=== PATIENT | male | born 1955 | race Caucasian/White ===

== ENCOUNTER → 2016-12-22 | Day surgery (SDC) | payer OTHER | LOC: MSO 12-15 13:20 | DX: Z12.11 Encounter for screening for malignant neoplasm of colon (principal); K57.30 Diverticulosis of large intestine without perforation or abscess without bleeding; K64.4 Residual hemorrhoidal skin tags | CPT/HCPCS: 00810; J2405; J7120 ==

== ENCOUNTER → 2018-11-10 | Outpatient (CLI) | payer BC | LOC: RAD 08:22 | DX: R91.1 Solitary pulmonary nodule (principal); R93.422 Abnormal radiologic findings on diagnostic imaging of left kidney | CPT/HCPCS: Q9967 ==

== ENCOUNTER → 2019-01-10 | Outpatient (CLI) | payer BC | LOC: RAD 08:09 | DX: K86.9 Disease of pancreas, unspecified (principal); C64.2 Malignant neoplasm of left kidney, except renal pelvis; R91.1 Solitary pulmonary nodule | CPT/HCPCS: Q9965; Q9967 ==

== ENCOUNTER → 2019-02-21 | Outpatient (CLI) | payer BC | LOC: LAB 07:09 → RAD 07:09 | PROVIDERS: Urology | DX: Z01.812 Encounter for preprocedural laboratory examination (principal); K86.9 Disease of pancreas, unspecified; R91.1 Solitary pulmonary nodule; R93.422 Abnormal radiologic findings on diagnostic imaging of left kidney; Z90.5 Acquired absence of kidney | CPT/HCPCS: Q9967 ==

== ENCOUNTER → 2019-06-28 | Outpatient (CLI) | payer BC | LOC: LAB 07:52 → RAD 07:52 | DX: C25.9 Malignant neoplasm of pancreas, unspecified (principal); K57.30 Diverticulosis of large intestine without perforation or abscess without bleeding; Z90.81 Acquired absence of spleen; Z90.5 Acquired absence of kidney | CPT/HCPCS: Q9967 ==

== ENCOUNTER → 2019-09-27 | Outpatient (CLI) | payer BC | LOC: RAD 07:15 | DX: C64.2 Malignant neoplasm of left kidney, except renal pelvis (principal); Z85.07 Personal history of malignant neoplasm of pancreas | CPT/HCPCS: Q9967 ==

== ENCOUNTER → 2019-11-08 | Outpatient (CLI) | payer BC ==
[2019-11-08 15:10] LABS: HEMOGLOBIN 15.1 g/dL (13.5-18.0); MEAN CELL VOLUME 92 fl (78-100); MEAN CORPUSCULAR HEMOGLOBIN 31 pg (27-31); MEAN CORPUSCULAR HGB CONC 34 g/dL (33-37); MEAN PLATELET VOLUME 9.1 fl (7.4-10.4); PLATELET COUNT 462 K/mm3 (130-400); RED BLOOD COUNT 4.87 M/mm3 (4.20-5.60); WHITE BLOOD COUNT 10.2 K/mm3 (4.8-10.8)
[2019-11-08 15:19] LABS: POTASSIUM 4.2 mmol/L (3.5-5.1)
[2019-11-08 15:20] LABS: CALCIUM 9.3 mg/dL (8.3-10.5)
[2019-11-08 15:21] LABS: TOTAL PROTEIN 7.3 g/dL (6.2-8.1)
[2019-11-08 15:22] LABS: LYMPHOCYTE 41 % (20-51); MONOCYTE 13 % (3-10); NEUTROPHILS 40 % (42-75)
[2019-11-08 15:23] LABS: TOTAL BILIRUBIN 0.5 mg/dL (0.2-1.2)
== END ==
LOC: LAB 14:57
PROVIDERS: Internal Medicine
DX: C64.2 Malignant neoplasm of left kidney, except renal pelvis (principal)

== ENCOUNTER → 2019-12-20 | Outpatient (CLI) | payer BC ==
[2019-12-20 09:46] LABS: HEMOGLOBIN 15.1 g/dL (13.5-18.0); MEAN CELL VOLUME 93 fl (78-100); MEAN CORPUSCULAR HEMOGLOBIN 31 pg (27-31); MEAN CORPUSCULAR HGB CONC 33 g/dL (33-37); PLATELET COUNT 474 K/mm3 (130-400); RED BLOOD COUNT 4.95 M/mm3 (4.20-5.60); RED CELL DISTRIBUTION WIDTH 13.1 % (11.5-14.5); WHITE BLOOD COUNT 8.1 K/mm3 (4.8-10.8)
[2019-12-20 09:49] LABS: POTASSIUM 4.1 mmol/L (3.5-5.1)
[2019-12-20 09:50] LABS: CALCIUM 9.3 mg/dL (8.3-10.5)
[2019-12-20 09:53] LABS: TOTAL BILIRUBIN 0.7 mg/dL (0.2-1.2)
[2019-12-20 10:45] LABS: LYMPHOCYTE 47 % (20-51); MONOCYTE 19 % (3-10); NEUTROPHILS 33 % (42-75)
== END ==
LOC: LAB 09:04
PROVIDERS: Internal Medicine
DX: C64.2 Malignant neoplasm of left kidney, except renal pelvis (principal)

== ENCOUNTER → 2020-01-03 | Outpatient (CLI) | payer BC | LOC: RAD 07:36 | DX: C64.2 Malignant neoplasm of left kidney, except renal pelvis (principal) | CPT/HCPCS: A9585 ==

== ENCOUNTER → 2020-01-06 | Outpatient (CLI) | payer BC | LOC: RAD 08:43 | DX: C64.2 Malignant neoplasm of left kidney, except renal pelvis (principal); E27.8 Other specified disorders of adrenal gland; K86.2 Cyst of pancreas; Z90.81 Acquired absence of spleen; Z90.5 Acquired absence of kidney; Z90.411 Acquired partial absence of pancreas | CPT/HCPCS: Q9967 ==

== ENCOUNTER → 2020-01-10 | Outpatient (CLI) | payer BC ==
[2020-01-10 16:41] LABS: BASO # 0.1 (0.02-0.10); EOS # 0.4 (0.04-0.40); EOS % 3.3 % (0.0-4.0); HEMATOCRIT 49.3 % (42.0-52.0); HEMOGLOBIN 16.4 g/dL (13.5-18.0); LYMPH# 4.2 (1.50-4.00); MEAN CELL VOLUME 94 fl (78-100); MEAN CORPUSCULAR HEMOGLOBIN 31 pg (27-31); MEAN CORPUSCULAR HGB CONC 33 g/dL (33-37); MEAN PLATELET VOLUME 9.5 fl (7.4-10.4); MONO # 1.3 (0.20-0.80); NEU # 5.6 (1.40-6.50); PLATELET COUNT 381 K/mm3 (130-400); RED BLOOD COUNT 5.25 M/mm3 (4.20-5.60); RED CELL DISTRIBUTION WIDTH 14.1 % (11.5-14.5); WHITE BLOOD COUNT 11.7 K/mm3 (4.8-10.8)
[2020-01-10 16:44] LABS: ALBUMIN 4.3 g/dL (3.4-4.8)
[2020-01-10 16:46] LABS: CALCIUM 9.4 mg/dL (8.3-10.5)
[2020-01-10 16:47] LABS: TOTAL PROTEIN 8.1 g/dL (6.2-8.1)
[2020-01-10 16:49] LABS: TOTAL BILIRUBIN 0.5 mg/dL (0.2-1.2)
== END ==
LOC: LAB 16:15
PROVIDERS: Internal Medicine
DX: C64.2 Malignant neoplasm of left kidney, except renal pelvis (principal)

== ENCOUNTER → 2020-01-31 | Outpatient (CLI) | payer BC ==
[2020-01-31 08:01] LABS: BASO # 0.1 (0.02-0.10); EOS # 0.5 (0.04-0.40); EOS % 4.9 % (0.0-4.0); HEMOGLOBIN 15.4 g/dL (13.5-18.0); LYMPH# 4.1 (1.50-4.00); MEAN CELL VOLUME 94 fl (78-100); MEAN CORPUSCULAR HEMOGLOBIN 31 pg (27-31); MEAN CORPUSCULAR HGB CONC 34 g/dL (33-37); MEAN PLATELET VOLUME 9.6 fl (7.4-10.4); NEU # 3.7 (1.40-6.50); PLATELET COUNT 405 K/mm3 (130-400); RED BLOOD COUNT 4.91 M/mm3 (4.20-5.60); RED CELL DISTRIBUTION WIDTH 14.8 % (11.5-14.5); WHITE BLOOD COUNT 9.5 K/mm3 (4.8-10.8)
[2020-01-31 08:34] LABS: ALBUMIN 4.1 g/dL (3.4-4.8)
[2020-01-31 08:35] LABS: POTASSIUM 4.1 mmol/L (3.5-5.1)
[2020-01-31 08:36] LABS: CALCIUM 9.3 mg/dL (8.3-10.5)
[2020-01-31 08:37] LABS: TOTAL PROTEIN 7.2 g/dL (6.2-8.1)
== END ==
LOC: LAB 07:29
PROVIDERS: Internal Medicine
DX: C64.2 Malignant neoplasm of left kidney, except renal pelvis (principal)

== ENCOUNTER → 2020-02-20 | Outpatient (CLI) | payer BC ==
[2020-02-20 07:52] LABS: HEMATOCRIT 45.6 % (42.0-52.0); HEMOGLOBIN 15.1 g/dL (13.5-18.0); MEAN CELL VOLUME 97 fl (78-100); MEAN CORPUSCULAR HEMOGLOBIN 32 pg (27-31); MEAN CORPUSCULAR HGB CONC 33 g/dL (33-37); MEAN PLATELET VOLUME 9.2 fl (7.4-10.4); PLATELET COUNT 423 K/mm3 (130-400); RED BLOOD COUNT 4.71 M/mm3 (4.20-5.60); RED CELL DISTRIBUTION WIDTH 14.9 % (11.5-14.5); WHITE BLOOD COUNT 8.6 K/mm3 (4.8-10.8)
[2020-02-20 08:01] LABS: ALBUMIN 4.1 g/dL (3.4-4.8); POTASSIUM 4.2 mmol/L (3.5-5.1)
[2020-02-20 08:03] LABS: CALCIUM 9.3 mg/dL (8.3-10.5)
[2020-02-20 08:04] LABS: TOTAL PROTEIN 6.9 g/dL (6.2-8.1)
[2020-02-20 08:41] LABS: LYMPHOCYTE 51 % (20-51); MONOCYTE 10 % (3-10); NEUTROPHILS 35 % (42-75)
[2020-02-20 08:42] LABS: ACANTHROCYTES 1+
== END ==
LOC: LAB 07:32
PROVIDERS: Internal Medicine
DX: C64.9 Malignant neoplasm of unspecified kidney, except renal pelvis (principal)

== ENCOUNTER → 2020-03-13 | Outpatient (CLI) | payer BC ==
[2020-03-14 20:15] LABS: ALBUMIN 4.2 g/dL (3.4-4.8); HEMATOCRIT 47.6 % (42.0-52.0); HEMOGLOBIN 15.4 g/dL (13.5-18.0); MEAN CELL VOLUME 99 fl (78-100); MEAN CORPUSCULAR HEMOGLOBIN 32 pg (27-31); POTASSIUM 5.2 mmol/L (3.5-5.1); RED BLOOD COUNT 4.82 M/mm3 (4.20-5.60); WHITE BLOOD COUNT 9.9 K/mm3 (4.8-10.8)
[2020-03-14 20:16] LABS: CALCIUM 9.8 mg/dL (8.3-10.5); MEAN CORPUSCULAR HGB CONC 32 g/dL (33-37); MEAN PLATELET VOLUME 10.9 fl (7.4-10.4); PLATELET COUNT 391 K/mm3 (130-400); RED CELL DISTRIBUTION WIDTH 14.2 % (11.5-14.5)
[2020-03-14 20:18] LABS: LYMPHOCYTE 31 % (20-51); MONOCYTE 16 % (3-10); NEUTROPHILS 48 % (42-75); TOTAL PROTEIN 7.6 g/dL (6.2-8.1)
[2020-03-14 20:19] LABS: ACANTHROCYTES 1+; TARGET CELLS 1+; TOTAL BILIRUBIN 0.8 mg/dL (0.2-1.2)
== END ==
LOC: LAB 16:20
PROVIDERS: Internal Medicine
DX: C64.9 Malignant neoplasm of unspecified kidney, except renal pelvis (principal)

== ENCOUNTER → 2020-03-30 | Outpatient (CLI) | payer BC | LOC: RAD 08:30 | DX: C64.9 Malignant neoplasm of unspecified kidney, except renal pelvis (principal); E27.8 Other specified disorders of adrenal gland; K86.89 Other specified diseases of pancreas; Z90.5 Acquired absence of kidney; Z90.411 Acquired partial absence of pancreas; Z90.81 Acquired absence of spleen; Z98.52 Vasectomy status | CPT/HCPCS: Q9967 ==

== ENCOUNTER → 2020-04-03 | Outpatient (CLI) | payer BC ==
[2020-04-03 15:37] LABS: BASO # 0.1 (0.02-0.10); EOS # 0.3 (0.04-0.40); EOS % 3.6 % (0.0-4.0); HEMATOCRIT 45.1 % (42.0-52.0); HEMOGLOBIN 14.4 g/dL (13.5-18.0); LYMPH# 3.7 (1.50-4.00); MEAN CELL VOLUME 101 fl (78-100); MEAN CORPUSCULAR HEMOGLOBIN 32 pg (27-31); MEAN CORPUSCULAR HGB CONC 32 g/dL (33-37); MEAN PLATELET VOLUME 9.6 fl (7.4-10.4); NEU # 3.7 (1.40-6.50); PLATELET COUNT 396 K/mm3 (130-400); RED BLOOD COUNT 4.47 M/mm3 (4.20-5.60); RED CELL DISTRIBUTION WIDTH 13.5 % (11.5-14.5); WHITE BLOOD COUNT 8.8 K/mm3 (4.8-10.8)
[2020-04-03 15:47] LABS: ALBUMIN 4.1 g/dL (3.4-4.8); POTASSIUM 3.7 mmol/L (3.5-5.1)
[2020-04-03 15:52] LABS: TOTAL BILIRUBIN 0.8 mg/dL (0.2-1.2)
== END ==
LOC: LAB 15:28
PROVIDERS: Internal Medicine
DX: C64.9 Malignant neoplasm of unspecified kidney, except renal pelvis (principal)

== ENCOUNTER → 2020-04-12 | Outpatient (CLI) | payer BC | LOC: MAMMO 12:00 | DX: C64.2 Malignant neoplasm of left kidney, except renal pelvis (principal); N62 Hypertrophy of breast ==

== ENCOUNTER → 2020-04-24 | Outpatient (CLI) | payer BC ==
[2020-04-24 15:40] LABS: BASO # 0.1 (0.02-0.10); EOS # 0.2 (0.04-0.40); EOS % 2.2 % (0.0-4.0); HEMATOCRIT 49.3 % (42.0-52.0); HEMOGLOBIN 16.2 g/dL (13.5-18.0); MEAN CELL VOLUME 97 fl (78-100); MEAN CORPUSCULAR HEMOGLOBIN 32 pg (27-31); MEAN CORPUSCULAR HGB CONC 33 g/dL (33-37); MEAN PLATELET VOLUME 9.6 fl (7.4-10.4); MONO # 1.2 (0.20-0.80); NEU # 3.7 (1.40-6.50); PLATELET COUNT 438 K/mm3 (130-400); RED BLOOD COUNT 5.07 M/mm3 (4.20-5.60); RED CELL DISTRIBUTION WIDTH 12.8 % (11.5-14.5); WHITE BLOOD COUNT 10.5 K/mm3 (4.8-10.8)
[2020-04-24 15:43] LABS: LYMPH# 5.2 (1.50-4.00)
[2020-04-24 15:44] LABS: ALBUMIN 4.1 g/dL (3.4-4.8); POTASSIUM 4.1 mmol/L (3.5-5.1)
[2020-04-24 15:45] LABS: CALCIUM 9.6 mg/dL (8.3-10.5)
[2020-04-24 15:46] LABS: TOTAL PROTEIN 7.6 g/dL (6.2-8.1)
[2020-04-24 15:48] LABS: TOTAL BILIRUBIN 0.5 mg/dL (0.2-1.2)
== END ==
LOC: LAB 15:22
PROVIDERS: Internal Medicine
DX: C64.9 Malignant neoplasm of unspecified kidney, except renal pelvis (principal); C25.9 Malignant neoplasm of pancreas, unspecified

== ENCOUNTER → 2020-06-06 | Outpatient (CLI) | payer BC ==
[2020-06-06 13:41] LABS: BASO # 0.1 (0.02-0.10); EOS # 0.3 (0.04-0.40); HEMATOCRIT 51.7 % (42.0-52.0); HEMOGLOBIN 16.7 g/dL (13.5-18.0); LYMPH# 4.3 (1.50-4.00); MEAN CELL VOLUME 97 fl (78-100); MEAN CORPUSCULAR HEMOGLOBIN 31 pg (27-31); MEAN CORPUSCULAR HGB CONC 32 g/dL (33-37); MEAN PLATELET VOLUME 9.8 fl (7.4-10.4); MONO # 0.8 (0.20-0.80); NEU # 3.2 (1.40-6.50); PLATELET COUNT 396 K/mm3 (130-400); RED BLOOD COUNT 5.36 M/mm3 (4.20-5.60); RED CELL DISTRIBUTION WIDTH 13.2 % (11.5-14.5); WHITE BLOOD COUNT 8.6 K/mm3 (4.8-10.8)
[2020-06-06 13:44] LABS: ALBUMIN 4.3 g/dL (3.4-4.8); POTASSIUM 4.2 mmol/L (3.5-5.1)
[2020-06-06 13:46] LABS: CALCIUM 9.5 mg/dL (8.3-10.5)
[2020-06-06 13:47] LABS: TOTAL PROTEIN 7.7 g/dL (6.2-8.1)
[2020-06-06 13:49] LABS: TOTAL BILIRUBIN 0.7 mg/dL (0.2-1.2)
== END ==
LOC: LAB 13:09
PROVIDERS: Internal Medicine
DX: C64.2 Malignant neoplasm of left kidney, except renal pelvis (principal)

== ENCOUNTER → 2020-06-25 | Outpatient (CLI) | payer BC | LOC: RAD 11:00 | DX: C64.9 Malignant neoplasm of unspecified kidney, except renal pelvis (principal); Z90.410 Acquired total absence of pancreas; Z90.81 Acquired absence of spleen; Z98.52 Vasectomy status | CPT/HCPCS: Q9967 ==

== ENCOUNTER → 2020-06-27 | Outpatient (CLI) | payer BC ==
[2020-06-27 13:28] LABS: BASO # 0.1 (0.02-0.10); EOS # 0.3 (0.04-0.40); EOS % 3.1 % (0.0-4.0); HEMATOCRIT 49.5 % (42.0-52.0); HEMOGLOBIN 15.9 g/dL (13.5-18.0); LYMPH# 4.4 (1.50-4.00); MEAN CELL VOLUME 98 fl (78-100); MEAN CORPUSCULAR HEMOGLOBIN 31 pg (27-31); MEAN CORPUSCULAR HGB CONC 32 g/dL (33-37); MEAN PLATELET VOLUME 9.9 fl (7.4-10.4); MONO # 0.9 (0.20-0.80); NEU # 3.3 (1.40-6.50); PLATELET COUNT 369 K/mm3 (130-400); RED BLOOD COUNT 5.07 M/mm3 (4.20-5.60); RED CELL DISTRIBUTION WIDTH 13.4 % (11.5-14.5)
[2020-06-27 13:38] LABS: ALBUMIN 4.1 g/dL (3.4-4.8); POTASSIUM 4.2 mmol/L (3.5-5.1)
[2020-06-27 13:39] LABS: CALCIUM 9.2 mg/dL (8.3-10.5)
[2020-06-27 13:41] LABS: TOTAL PROTEIN 7.7 g/dL (6.2-8.1)
[2020-06-27 13:42] LABS: TOTAL BILIRUBIN 0.5 mg/dL (0.2-1.2)
== END ==
LOC: LAB 13:16
PROVIDERS: Internal Medicine
DX: C64.2 Malignant neoplasm of left kidney, except renal pelvis (principal)

== ENCOUNTER → 2020-07-18 | Outpatient (CLI) | payer BC ==
[2020-07-18 11:56] LABS: BASO # 0.06 (0.02-0.10); EOS # 0.14 (0.04-0.40); EOS % 1.4 % (0.0-4.0); HEMATOCRIT 47.8 % (42.0-52.0); HEMOGLOBIN 16.2 g/dL (13.5-18.0); LYMPH# 3.64 (1.50-4.00); MEAN CELL VOLUME 95 fl (78-100); MEAN CORPUSCULAR HEMOGLOBIN 32 pg (27-31); MEAN CORPUSCULAR HGB CONC 34 g/dL (33-37); MEAN PLATELET VOLUME 9.9 fl (7.4-10.4); MONO # 0.87 (0.20-0.80); NEU # 5.12 (1.40-6.50); PLATELET COUNT 372 K/mm3 (130-400); RED BLOOD COUNT 5.01 M/mm3 (4.20-5.60); RED CELL DISTRIBUTION WIDTH 12.9 % (11.5-14.5); WHITE BLOOD COUNT 9.8 K/mm3 (4.8-10.8)
[2020-07-18 12:26] LABS: ALBUMIN 4.2 g/dL (3.4-4.8)
[2020-07-18 12:27] LABS: POTASSIUM 4.2 mmol/L (3.5-5.1)
[2020-07-18 12:28] LABS: CALCIUM 9.3 mg/dL (8.3-10.5)
[2020-07-18 12:29] LABS: TOTAL PROTEIN 7.5 g/dL (6.2-8.1)
[2020-07-18 12:31] LABS: TOTAL BILIRUBIN 0.9 mg/dL (0.2-1.2)
== END ==
LOC: LAB 11:20
PROVIDERS: Internal Medicine
DX: C64.2 Malignant neoplasm of left kidney, except renal pelvis (principal)

== ENCOUNTER → 2020-08-14 | Outpatient (CLI) | payer BC ==
[2020-08-14 15:23] LABS: BASO # 0.09 (0.02-0.10); EOS # 0.27 (0.04-0.40); EOS % 3.2 % (0.0-4.0); HEMATOCRIT 44.6 % (42.0-52.0); HEMOGLOBIN 14.9 g/dL (13.5-18.0); LYMPH# 4.37 (1.50-4.00); MEAN CELL VOLUME 96 fl (78-100); MEAN CORPUSCULAR HEMOGLOBIN 32 pg (27-31); MEAN CORPUSCULAR HGB CONC 33 g/dL (33-37); MEAN PLATELET VOLUME 9.4 fl (7.4-10.4); NEU # 2.71 (1.40-6.50); PLATELET COUNT 393 K/mm3 (130-400); RED BLOOD COUNT 4.65 M/mm3 (4.20-5.60); WHITE BLOOD COUNT 8.4 K/mm3 (4.8-10.8)
[2020-08-14 15:38] LABS: POTASSIUM 4.6 mmol/L (3.5-5.1)
[2020-08-14 15:39] LABS: CALCIUM 9.4 mg/dL (8.3-10.5)
[2020-08-14 15:40] LABS: TOTAL PROTEIN 7.2 g/dL (6.2-8.1)
[2020-08-14 15:42] LABS: TOTAL BILIRUBIN 0.4 mg/dL (0.2-1.2)
== END ==
LOC: LAB 15:03
PROVIDERS: Internal Medicine
DX: C64.2 Malignant neoplasm of left kidney, except renal pelvis (principal)

== ENCOUNTER → 2020-09-04 | Outpatient (CLI) | payer BC ==
[2020-09-04 14:38] LABS: BASO # 0.07 (0.02-0.10); EOS # 0.31 (0.04-0.40); HEMATOCRIT 44.2 % (42.0-52.0); HEMOGLOBIN 14.7 g/dL (13.5-18.0); LYMPH# 3.88 (1.50-4.00); MEAN CELL VOLUME 96 fl (78-100); MEAN CORPUSCULAR HEMOGLOBIN 32 pg (27-31); MEAN CORPUSCULAR HGB CONC 33 g/dL (33-37); MEAN PLATELET VOLUME 9.6 fl (7.4-10.4); MONO # 0.97 (0.20-0.80); NEU # 5.25 (1.40-6.50); PLATELET COUNT 410 K/mm3 (130-400); RED BLOOD COUNT 4.62 M/mm3 (4.20-5.60); RED CELL DISTRIBUTION WIDTH 12.9 % (11.5-14.5); WHITE BLOOD COUNT 10.5 K/mm3 (4.8-10.8)
[2020-09-04 15:01] LABS: ALBUMIN 3.9 g/dL (3.4-4.8); POTASSIUM 4.2 mmol/L (3.5-5.1)
[2020-09-04 15:02] LABS: CALCIUM 9.3 mg/dL (8.3-10.5)
[2020-09-04 15:04] LABS: TOTAL PROTEIN 7.2 g/dL (6.2-8.1)
[2020-09-04 15:05] LABS: TOTAL BILIRUBIN 0.5 mg/dL (0.2-1.2)
== END ==
LOC: LAB 14:19
PROVIDERS: Internal Medicine
DX: C64.2 Malignant neoplasm of left kidney, except renal pelvis (principal)

== ENCOUNTER → 2020-09-20 | Outpatient (CLI) | payer BC | LOC: RAD 08:22 | DX: C64.2 Malignant neoplasm of left kidney, except renal pelvis (principal); K86.2 Cyst of pancreas; N28.89 Other specified disorders of kidney and ureter; K57.30 Diverticulosis of large intestine without perforation or abscess without bleeding; R91.1 Solitary pulmonary nodule; Z90.5 Acquired absence of kidney; Z90.81 Acquired absence of spleen | CPT/HCPCS: Q9967 ==

== ENCOUNTER → 2020-09-25 | Outpatient (CLI) | payer BC ==
[2020-09-25 13:34] LABS: EOS # 0.13 (0.04-0.40); EOS % 1.6 % (0.0-4.0); LYMPH# 3.99 (1.50-4.00); MEAN CELL VOLUME 95 fl (78-100); MEAN CORPUSCULAR HEMOGLOBIN 33 pg (27-31); MEAN CORPUSCULAR HGB CONC 34 g/dL (33-37); MEAN PLATELET VOLUME 9.4 fl (7.4-10.4); MONO # 0.71 (0.20-0.80); NEU # 2.99 (1.40-6.50); PLATELET COUNT 400 K/mm3 (130-400); RED BLOOD COUNT 4.62 M/mm3 (4.20-5.60); RED CELL DISTRIBUTION WIDTH 12.7 % (11.5-14.5); WHITE BLOOD COUNT 7.9 K/mm3 (4.8-10.8)
[2020-09-25 13:48] LABS: ALBUMIN 4.1 g/dL (3.4-4.8); POTASSIUM 4.8 mmol/L (3.5-5.1)
[2020-09-25 13:50] LABS: CALCIUM 9.7 mg/dL (8.3-10.5)
[2020-09-25 13:51] LABS: TOTAL PROTEIN 7.4 g/dL (6.2-8.1)
[2020-09-25 13:53] LABS: TOTAL BILIRUBIN 0.8 mg/dL (0.2-1.2)
== END ==
LOC: LAB 13:20
PROVIDERS: Internal Medicine
DX: C64.9 Malignant neoplasm of unspecified kidney, except renal pelvis (principal)

== ENCOUNTER → 2020-10-01 | Day surgery (SDC) | payer BC | LOC: MSO 07:08 | DX: K52.9 Noninfective gastroenteritis and colitis, unspecified (principal); K57.30 Diverticulosis of large intestine without perforation or abscess without bleeding; C64.2 Malignant neoplasm of left kidney, except renal pelvis; C79.00 Secondary malignant neoplasm of unspecified kidney and renal pelvis; E07.9 Disorder of thyroid, unspecified; Z79.899 Other long term (current) drug therapy; Z79.2 Long term (current) use of antibiotics; Z87.891 Personal history of nicotine dependence | CPT/HCPCS: 00811; J2704; J7120 ==

== ENCOUNTER → 2020-10-15 | Outpatient (CLI) | payer BC ==
[2020-10-15 15:15] LABS: BASO # 0.07 (0.02-0.10); EOS # 0.29 (0.04-0.40); EOS % 3.6 % (0.0-4.0); HEMATOCRIT 46.3 % (42.0-52.0); HEMOGLOBIN 15.2 g/dL (13.5-18.0); LYMPH# 4.01 (1.50-4.00); MEAN CELL VOLUME 98 fl (78-100); MEAN CORPUSCULAR HEMOGLOBIN 32 pg (27-31); MEAN CORPUSCULAR HGB CONC 33 g/dL (33-37); MEAN PLATELET VOLUME 8.9 fl (7.4-10.4); MONO # 0.62 (0.20-0.80); NEU # 2.98 (1.40-6.50); PLATELET COUNT 404 K/mm3 (130-400); RED BLOOD COUNT 4.72 M/mm3 (4.20-5.60); RED CELL DISTRIBUTION WIDTH 13.3 % (11.5-14.5)
[2020-10-15 15:36] LABS: ALBUMIN 3.7 g/dL (3.4-4.8)
[2020-10-15 15:37] LABS: POTASSIUM 4.4 mmol/L (3.5-5.1)
[2020-10-15 15:38] LABS: CALCIUM 9.2 mg/dL (8.3-10.5)
[2020-10-15 15:39] LABS: TOTAL PROTEIN 6.8 g/dL (6.2-8.1)
[2020-10-15 15:41] LABS: TOTAL BILIRUBIN 0.4 mg/dL (0.2-1.2)
== END ==
LOC: LAB 15:03
PROVIDERS: Internal Medicine
DX: C64.2 Malignant neoplasm of left kidney, except renal pelvis (principal)

== ENCOUNTER → 2020-11-06 | Outpatient (CLI) | payer BC ==
[2020-11-06 09:02] LABS: BASO # 0.05 (0.02-0.10); EOS # 0.12 (0.04-0.40); EOS % 1.1 % (0.0-4.0); HEMOGLOBIN 14.7 g/dL (13.5-18.0); LYMPH# 1.54 (1.50-4.00); MEAN CELL VOLUME 98 fl (78-100); MEAN CORPUSCULAR HEMOGLOBIN 32 pg (27-31); MEAN CORPUSCULAR HGB CONC 33 g/dL (33-37); MEAN PLATELET VOLUME 9.4 fl (7.4-10.4); NEU # 8.41 (1.40-6.50); PLATELET COUNT 409 K/mm3 (130-400); RED BLOOD COUNT 4.61 M/mm3 (4.20-5.60); RED CELL DISTRIBUTION WIDTH 12.6 % (11.5-14.5); WHITE BLOOD COUNT 10.8 K/mm3 (4.8-10.8)
[2020-11-06 09:14] LABS: ALBUMIN 3.7 g/dL (3.4-4.8); POTASSIUM 4.7 mmol/L (3.5-5.1)
[2020-11-06 09:16] LABS: CALCIUM 9.9 mg/dL (8.3-10.5)
[2020-11-06 09:19] LABS: TOTAL BILIRUBIN 0.5 mg/dL (0.2-1.2)
== END ==
LOC: LAB 08:48
PROVIDERS: Internal Medicine
DX: C64.2 Malignant neoplasm of left kidney, except renal pelvis (principal)

== ENCOUNTER → 2020-11-27 | Outpatient (CLI) | payer BC ==
[2020-11-27 08:24] LABS: BASO # 0.07 (0.02-0.10); EOS # 0.21 (0.04-0.40); EOS % 1.8 % (0.0-4.0); HEMATOCRIT 45.6 % (42.0-52.0); HEMOGLOBIN 14.6 g/dL (13.5-18.0); LYMPH# 4.81 (1.50-4.00); MEAN CELL VOLUME 99 fl (78-100); MEAN CORPUSCULAR HEMOGLOBIN 32 pg (27-31); MEAN CORPUSCULAR HGB CONC 32 g/dL (33-37); MEAN PLATELET VOLUME 8.9 fl (7.4-10.4); MONO # 1.13 (0.20-0.80); NEU # 5.47 (1.40-6.50); PLATELET COUNT 491 K/mm3 (130-400); WHITE BLOOD COUNT 11.8 K/mm3 (4.8-10.8)
[2020-11-27 08:44] LABS: ALBUMIN 3.8 g/dL (3.4-4.8); POTASSIUM 4.3 mmol/L (3.5-5.1)
[2020-11-27 08:46] LABS: CALCIUM 10.1 mg/dL (8.3-10.5)
[2020-11-27 08:47] LABS: TOTAL PROTEIN 7.3 g/dL (6.2-8.1)
== END ==
LOC: LAB 08:06
PROVIDERS: Internal Medicine
DX: C64.2 Malignant neoplasm of left kidney, except renal pelvis (principal)

== ENCOUNTER → 2020-12-18 | Outpatient (CLI) | payer BC ==
[2020-12-18 08:28] LABS: BASO # 0.14 (0.02-0.10); EOS # 0.47 (0.04-0.40); EOS % 4.3 % (0.0-4.0); HEMATOCRIT 43.2 % (42.0-52.0); HEMOGLOBIN 14.2 g/dL (13.5-18.0); LYMPH# 4.99 (1.50-4.00); MEAN CELL VOLUME 98 fl (78-100); MEAN CORPUSCULAR HEMOGLOBIN 32 pg (27-31); MEAN CORPUSCULAR HGB CONC 33 g/dL (33-37); MEAN PLATELET VOLUME 8.8 fl (7.4-10.4); MONO # 1.09 (0.20-0.80); NEU # 4.12 (1.40-6.50); PLATELET COUNT 493 K/mm3 (130-400); RED BLOOD COUNT 4.43 M/mm3 (4.20-5.60); RED CELL DISTRIBUTION WIDTH 12.8 % (11.5-14.5); WHITE BLOOD COUNT 10.9 K/mm3 (4.8-10.8)
[2020-12-18 08:37] LABS: POTASSIUM 4.7 mmol/L (3.5-5.1)
[2020-12-18 08:39] LABS: CALCIUM 9.9 mg/dL (8.3-10.5)
[2020-12-18 08:40] LABS: TOTAL PROTEIN 7.7 g/dL (6.2-8.1)
[2020-12-18 08:42] LABS: TOTAL BILIRUBIN 0.4 mg/dL (0.2-1.2)
== END ==
LOC: RAD 08:03
PROVIDERS: Internal Medicine
DX: C64.2 Malignant neoplasm of left kidney, except renal pelvis (principal); E27.8 Other specified disorders of adrenal gland; Z98.890 Other specified postprocedural states; Z90.81 Acquired absence of spleen
CPT/HCPCS: Q9967

== ENCOUNTER → 2021-01-04 | Outpatient (CLI) | payer BC | LOC: RAD 09:00 | DX: C64.9 Malignant neoplasm of unspecified kidney, except renal pelvis (principal) | CPT/HCPCS: Q9967 ==

== ENCOUNTER → 2021-01-08 | Outpatient (CLI) | payer BC ==
[2021-01-08 14:03] LABS: HEMATOCRIT 44.4 % (42.0-52.0); HEMOGLOBIN 14.6 g/dL (13.5-18.0); MEAN CELL VOLUME 98 fl (78-100); MEAN CORPUSCULAR HEMOGLOBIN 32 pg (27-31); MEAN CORPUSCULAR HGB CONC 33 g/dL (33-37); PLATELET COUNT 491 K/mm3 (130-400); RED BLOOD COUNT 4.52 M/mm3 (4.20-5.60); RED CELL DISTRIBUTION WIDTH 12.6 % (11.5-14.5); WHITE BLOOD COUNT 10.8 K/mm3 (4.8-10.8)
[2021-01-08 15:40] LABS: NEUTROPHILS 38 % (42-75)
[2021-01-08 15:41] LABS: LYMPHOCYTE 43 % (20-51); MONOCYTE 9 % (3-10)
[2021-01-08 16:00] LABS: ALBUMIN 4.2 g/dL (3.4-4.8)
[2021-01-08 16:01] LABS: POTASSIUM 4.6 mmol/L (3.5-5.1)
[2021-01-08 16:02] LABS: CALCIUM 10.6 mg/dL (8.3-10.5)
[2021-01-08 16:05] LABS: TOTAL BILIRUBIN 0.5 mg/dL (0.2-1.2)
== END ==
LOC: LAB 13:45
PROVIDERS: Internal Medicine
DX: C64.9 Malignant neoplasm of unspecified kidney, except renal pelvis (principal); C78.89 Secondary malignant neoplasm of other digestive organs; Z79.899 Other long term (current) drug therapy

== ENCOUNTER → 2021-01-29 | Outpatient (CLI) | payer BC, MEDICARE ==
[2021-01-29 14:18] LABS: HEMATOCRIT 42.2 % (42.0-52.0); MEAN CELL VOLUME 98 fl (78-100); MEAN CORPUSCULAR HEMOGLOBIN 33 pg (27-31); MEAN CORPUSCULAR HGB CONC 33 g/dL (33-37); PLATELET COUNT 466 K/mm3 (130-400); RED CELL DISTRIBUTION WIDTH 13.6 % (11.5-14.5); WHITE BLOOD COUNT 12.6 K/mm3 (4.8-10.8)
[2021-01-29 14:20] LABS: ALBUMIN 3.9 g/dL (3.4-4.8); POTASSIUM 4.2 mmol/L (3.5-5.1)
[2021-01-29 14:21] LABS: CALCIUM 9.5 mg/dL (8.3-10.5)
[2021-01-29 14:22] LABS: TOTAL PROTEIN 7.2 g/dL (6.2-8.1)
[2021-01-29 14:24] LABS: TOTAL BILIRUBIN 0.6 mg/dL (0.2-1.2)
[2021-01-29 14:45] LABS: LYMPHOCYTE 40 % (20-51); MONOCYTE 11 % (3-10); NEUTROPHILS 46 % (42-75)
[2021-01-29 17:36] LABS: URINE APPEARANCE CLEAR; URINE BILIRUBIN NEGATIVE (NEGATIVE); URINE BLOOD NEGATIVE (NEGATIVE); URINE COLOR YELLOW; URINE GLUCOSE NEGATIVE (NEGATIVE); URINE KETONE NEGATIVE (NEGATIVE); URINE LEUKOCYTE ESTERASE NEGATIVE (NEGATIVE); URINE NITRATE NEGATIVE (NEGATIVE); URINE PROTEIN(semi-quant) TRACE mg/dL (NEGATIVE); URINE UROBILINOGEN NORMAL (NORMAL); URINE WBC 0-1 /hpf (0-3)
== END ==
LOC: LAB 13:42
PROVIDERS: Internal Medicine
DX: C64.2 Malignant neoplasm of left kidney, except renal pelvis (principal)

== ENCOUNTER → 2021-02-18 | Outpatient (CLI) | payer BC, MEDICARE ==
[2021-02-18 14:07] LABS: BASO # 0.12 K/mm3 (0.02-0.10); EOS # 0.26 K/mm3 (0.04-0.40); EOS % 2.7 % (0.0-4.0); HEMATOCRIT 44.8 % (42.0-52.0); HEMOGLOBIN 14.9 g/dL (13.5-18.0); LYMPH# 4.73 K/mm3 (1.50-4.00); MEAN CELL VOLUME 98 fl (78-100); MEAN CORPUSCULAR HEMOGLOBIN 33 pg (27-31); MEAN CORPUSCULAR HGB CONC 33 g/dL (33-37); MONO # 0.75 K/mm3 (0.20-0.80); NEU # 3.63 K/mm3 (1.40-6.50); PLATELET COUNT 371 K/mm3 (130-400); RED BLOOD COUNT 4.58 M/mm3 (4.20-5.60); RED CELL DISTRIBUTION WIDTH 13.3 % (11.5-14.5); WHITE BLOOD COUNT 9.5 K/mm3 (4.8-10.8)
[2021-02-18 14:17] LABS: POTASSIUM 4.1 mmol/L (3.5-5.1)
[2021-02-18 14:18] LABS: CALCIUM 9.4 mg/dL (8.3-10.5)
[2021-02-18 14:19] LABS: TOTAL PROTEIN 7.5 g/dL (6.2-8.1)
[2021-02-18 14:21] LABS: TOTAL BILIRUBIN 0.5 mg/dL (0.2-1.2)
[2021-02-18 16:49] LABS: URINE WBC 0 /hpf (0-3)
[2021-02-18 17:47] LABS: URINE APPEARANCE CLEAR; URINE BILIRUBIN NEGATIVE (NEGATIVE); URINE BLOOD TRACE (NEGATIVE); URINE COLOR YELLOW; URINE GLUCOSE NEGATIVE (NEGATIVE); URINE KETONE NEGATIVE (NEGATIVE); URINE NITRATE NEGATIVE (NEGATIVE); URINE PROTEIN(semi-quant) TRACE mg/dL (NEGATIVE); URINE UROBILINOGEN NORMAL (NORMAL)
[2021-02-18 17:48] LABS: URINE LEUKOCYTE ESTERASE NEGATIVE (NEGATIVE); URINE MUCUS PRESENT (NOT PRESENT)
== END ==
LOC: LAB 13:49
PROVIDERS: Internal Medicine
DX: C64.2 Malignant neoplasm of left kidney, except renal pelvis (principal); E78.5 Hyperlipidemia, unspecified

== ENCOUNTER → 2021-02-21 | Outpatient (CLI) | payer BC, MEDICARE | LOC: RAD 14:52 | DX: S83.241A Other tear of medial meniscus, current injury, right knee, initial encounter (principal) ==

== ENCOUNTER → 2021-03-14 | Outpatient (CLI) | payer BC, MEDICARE | LOC: RAD 07:47 | DX: C64.2 Malignant neoplasm of left kidney, except renal pelvis (principal); E27.8 Other specified disorders of adrenal gland; Z90.81 Acquired absence of spleen; Z90.89 Acquired absence of other organs; Z90.5 Acquired absence of kidney | CPT/HCPCS: Q9967 ==

== ENCOUNTER → 2021-03-18 | Outpatient (CLI) | payer BC, MEDICARE ==
[2021-03-18 13:43] LABS: HEMOGLOBIN 14.9 g/dL (13.5-18.0); MEAN CELL VOLUME 98 fl (78-100); MEAN CORPUSCULAR HEMOGLOBIN 33 pg (27-31); MEAN CORPUSCULAR HGB CONC 33 g/dL (33-37); MEAN PLATELET VOLUME 9.2 fl (7.4-10.4); PLATELET COUNT 368 K/mm3 (130-400); RED BLOOD COUNT 4.59 M/mm3 (4.20-5.60); RED CELL DISTRIBUTION WIDTH 13.2 % (11.5-14.5); WHITE BLOOD COUNT 9.4 K/mm3 (4.8-10.8)
[2021-03-18 13:51] LABS: ALBUMIN 3.9 g/dL (3.4-4.8)
[2021-03-18 13:52] LABS: POTASSIUM 3.8 mmol/L (3.5-5.1)
[2021-03-18 13:53] LABS: CALCIUM 9.3 mg/dL (8.3-10.5)
[2021-03-18 13:54] LABS: TOTAL PROTEIN 7.2 g/dL (6.2-8.1)
[2021-03-18 13:56] LABS: TOTAL BILIRUBIN 0.5 mg/dL (0.2-1.2)
[2021-03-18 14:02] LABS: BAND 2 % (0-10); LYMPHOCYTE 55 % (20-51); MONOCYTE 9 % (3-10); NEUTROPHILS 30 % (42-75)
== END ==
LOC: LAB 13:21
PROVIDERS: Internal Medicine
DX: C64.2 Malignant neoplasm of left kidney, except renal pelvis (principal)

== ENCOUNTER → 2021-04-08 | Outpatient (CLI) | payer BC, MEDICARE ==
[2021-04-08 15:10] LABS: POTASSIUM 4.4 mmol/L (3.5-5.1)
[2021-04-08 15:12] LABS: CALCIUM 9.9 mg/dL (8.3-10.5)
[2021-04-08 15:13] LABS: TOTAL PROTEIN 7.8 g/dL (6.2-8.1)
[2021-04-08 15:15] LABS: TOTAL BILIRUBIN 0.5 mg/dL (0.2-1.2)
[2021-04-08 17:35] LABS: BASO # 0.14 K/mm3 (0.02-0.10); EOS # 0.35 K/mm3 (0.04-0.40); EOS % 3.5 % (0.0-4.0); HEMATOCRIT 47.3 % (42.0-52.0); HEMOGLOBIN 15.7 g/dL (13.5-18.0); LYMPH# 4.99 K/mm3 (1.50-4.00); MEAN CELL VOLUME 97 fl (78-100); MEAN CORPUSCULAR HEMOGLOBIN 32 pg (27-31); MEAN CORPUSCULAR HGB CONC 33 g/dL (33-37); MEAN PLATELET VOLUME 9.5 fl (7.4-10.4); MONO # 0.92 K/mm3 (0.20-0.80); NEU # 3.62 K/mm3 (1.40-6.50); PLATELET COUNT 412 K/mm3 (130-400); RED BLOOD COUNT 4.86 M/mm3 (4.20-5.60)
== END ==
LOC: LAB 14:05
PROVIDERS: Internal Medicine
DX: C64.2 Malignant neoplasm of left kidney, except renal pelvis (principal)

== ENCOUNTER → 2021-04-29 | Outpatient (CLI) | payer BC, MEDICARE ==
[2021-04-29 13:52] LABS: EOS # 0.22 K/mm3 (0.04-0.40); EOS % 2.1 % (0.0-4.0); HEMATOCRIT 47.8 % (42.0-52.0); HEMOGLOBIN 15.8 g/dL (13.5-18.0); LYMPH# 4.22 K/mm3 (1.50-4.00); MEAN CELL VOLUME 97 fl (78-100); MEAN CORPUSCULAR HEMOGLOBIN 32 pg (27-31); MEAN CORPUSCULAR HGB CONC 33 g/dL (33-37); MEAN PLATELET VOLUME 9.6 fl (7.4-10.4); MONO # 0.98 K/mm3 (0.20-0.80); NEU # 5.12 K/mm3 (1.40-6.50); PLATELET COUNT 331 K/mm3 (130-400); RED BLOOD COUNT 4.95 M/mm3 (4.20-5.60); RED CELL DISTRIBUTION WIDTH 12.8 % (11.5-14.5); WHITE BLOOD COUNT 10.7 K/mm3 (4.8-10.8)
[2021-04-29 14:08] LABS: POTASSIUM 4.2 mmol/L (3.5-5.1)
[2021-04-29 14:09] LABS: CALCIUM 9.8 mg/dL (8.3-10.5)
[2021-04-29 14:11] LABS: TOTAL PROTEIN 7.6 g/dL (6.2-8.1)
[2021-04-29 14:12] LABS: TOTAL BILIRUBIN 0.7 mg/dL (0.2-1.2)
== END ==
LOC: LAB 13:36
PROVIDERS: Internal Medicine
DX: C64.2 Malignant neoplasm of left kidney, except renal pelvis (principal)

== ENCOUNTER → 2021-05-20 | Outpatient (CLI) | payer BC, MEDICARE ==
[2021-05-20 13:47] LABS: BASO # 0.11 K/mm3 (0.02-0.10); EOS # 0.17 K/mm3 (0.04-0.40); EOS % 1.5 % (0.0-4.0); HEMATOCRIT 47.2 % (42.0-52.0); HEMOGLOBIN 15.6 g/dL (13.5-18.0); LYMPH# 4.16 K/mm3 (1.50-4.00); MEAN CELL VOLUME 96 fl (78-100); MEAN CORPUSCULAR HEMOGLOBIN 32 pg (27-31); MEAN CORPUSCULAR HGB CONC 33 g/dL (33-37); MEAN PLATELET VOLUME 9.3 fl (7.4-10.4); MONO # 1.03 K/mm3 (0.20-0.80); NEU # 5.76 K/mm3 (1.40-6.50); PLATELET COUNT 451 K/mm3 (130-400); RED BLOOD COUNT 4.92 M/mm3 (4.20-5.60); WHITE BLOOD COUNT 11.3 K/mm3 (4.8-10.8)
[2021-05-20 13:50] LABS: POTASSIUM 3.9 mmol/L (3.5-5.1)
[2021-05-20 13:52] LABS: CALCIUM 9.9 mg/dL (8.3-10.5)
[2021-05-20 13:53] LABS: TOTAL PROTEIN 7.7 g/dL (6.2-8.1)
[2021-05-20 13:55] LABS: TOTAL BILIRUBIN 0.7 mg/dL (0.2-1.2)
== END ==
LOC: LAB 13:25
PROVIDERS: Internal Medicine
DX: C64.2 Malignant neoplasm of left kidney, except renal pelvis (principal)

== ENCOUNTER → 2021-06-05 | Outpatient (CLI) | payer BC, MEDICARE | LOC: RAD 08:07 | DX: C64.2 Malignant neoplasm of left kidney, except renal pelvis (principal); R91.1 Solitary pulmonary nodule | CPT/HCPCS: Q9967 ==

== ENCOUNTER → 2021-06-10 | Outpatient (CLI) | payer BC, MEDICARE ==
[2021-06-10 14:43] LABS: CALCIUM 10.2 mg/dL (8.3-10.5); POTASSIUM 4.7 mmol/L (3.5-5.1); TOTAL BILIRUBIN 0.5 mg/dL (0.2-1.2); TOTAL PROTEIN 7.8 g/dL (6.2-8.1)
[2021-06-10 15:00] LABS: BASO # 0.06 K/mm3 (0.02-0.10); EOS # 0.14 K/mm3 (0.04-0.40); EOS % 1.1 % (0.0-4.0); HEMATOCRIT 46.1 % (42.0-52.0); HEMOGLOBIN 15.1 g/dL (13.5-18.0); LYMPH# 3.53 K/mm3 (1.50-4.00); MEAN CELL VOLUME 99 fl (78-100); MEAN CORPUSCULAR HEMOGLOBIN 32 pg (27-31); MEAN CORPUSCULAR HGB CONC 33 g/dL (33-37); MEAN PLATELET VOLUME 9.9 fl (7.4-10.4); MONO # 1.36 K/mm3 (0.20-0.80); NEU # 7.92 K/mm3 (1.40-6.50); PLATELET COUNT 437 K/mm3 (130-400); RED BLOOD COUNT 4.67 M/mm3 (4.20-5.60); RED CELL DISTRIBUTION WIDTH 13.3 % (11.5-14.5)
== END ==
LOC: LAB 11:21
PROVIDERS: Internal Medicine
DX: C64.2 Malignant neoplasm of left kidney, except renal pelvis (principal)

== ENCOUNTER → 2021-07-01 | Outpatient (CLI) | payer BC, MEDICARE ==
[2021-07-01 16:22] LABS: POTASSIUM 4.7 mmol/L (3.5-5.1)
[2021-07-01 16:24] LABS: CALCIUM 10.2 mg/dL (8.3-10.5)
[2021-07-01 16:25] LABS: TOTAL PROTEIN 7.8 g/dL (6.2-8.1)
[2021-07-01 16:27] LABS: TOTAL BILIRUBIN 0.5 mg/dL (0.2-1.2)
[2021-07-01 18:14] LABS: HEMATOCRIT 44.5 % (42.0-52.0); HEMOGLOBIN 14.5 g/dL (13.5-18.0); MEAN CELL VOLUME 97 fl (78-100); MEAN CORPUSCULAR HEMOGLOBIN 32 pg (27-31); MEAN CORPUSCULAR HGB CONC 33 g/dL (33-37); MEAN PLATELET VOLUME 9.1 fl (7.4-10.4); PLATELET COUNT 505 K/mm3 (130-400); RED BLOOD COUNT 4.57 M/mm3 (4.20-5.60); WHITE BLOOD COUNT 11.9 K/mm3 (4.8-10.8)
[2021-07-01 19:18] LABS: LYMPHOCYTE 42 % (20-51); MONOCYTE 10 % (3-10); NEUTROPHILS 47 % (42-75)
== END ==
LOC: LAB 11:55
PROVIDERS: Internal Medicine
DX: C64.2 Malignant neoplasm of left kidney, except renal pelvis (principal); C64.9 Malignant neoplasm of unspecified kidney, except renal pelvis

== ENCOUNTER → 2021-07-22 | Outpatient (CLI) | payer BC, MEDICARE ==
[2021-07-22 14:18] LABS: HEMATOCRIT 41.1 % (42.0-52.0); HEMOGLOBIN 13.1 g/dL (13.5-18.0); MEAN CELL VOLUME 100 fl (78-100); MEAN CORPUSCULAR HEMOGLOBIN 32 pg (27-31); MEAN CORPUSCULAR HGB CONC 32 g/dL (33-37); MEAN PLATELET VOLUME 9.4 fl (7.4-10.4); PLATELET COUNT 404 K/mm3 (130-400); RED BLOOD COUNT 4.11 M/mm3 (4.20-5.60); RED CELL DISTRIBUTION WIDTH 13.4 % (11.5-14.5); WHITE BLOOD COUNT 11.9 K/mm3 (4.8-10.8)
[2021-07-22 14:26] LABS: ALBUMIN 3.8 g/dL (3.4-4.8); POTASSIUM 4.4 mmol/L (3.5-5.1)
[2021-07-22 14:27] LABS: CALCIUM 9.7 mg/dL (8.3-10.5)
[2021-07-22 14:29] LABS: TOTAL PROTEIN 7.4 g/dL (6.2-8.1)
[2021-07-22 14:30] LABS: TOTAL BILIRUBIN 0.4 mg/dL (0.2-1.2)
[2021-07-22 16:28] LABS: LYMPHOCYTE 52 % (20-51); MONOCYTE 8 % (3-10); NEUTROPHILS 38 % (42-75)
== END ==
LOC: LAB 14:04
PROVIDERS: Internal Medicine
DX: C64.2 Malignant neoplasm of left kidney, except renal pelvis (principal)

== ENCOUNTER → 2021-08-13 | Outpatient (CLI) | payer BC, MEDICARE ==
[2021-08-13 13:10] LABS: HEMATOCRIT 42.7 % (42.0-52.0); HEMOGLOBIN 13.9 g/dL (13.5-18.0); MEAN CELL VOLUME 99 fl (78-100); MEAN CORPUSCULAR HEMOGLOBIN 32 pg (27-31); MEAN CORPUSCULAR HGB CONC 33 g/dL (33-37); MEAN PLATELET VOLUME 9.7 fl (7.4-10.4); PLATELET COUNT 388 K/mm3 (130-400); RED CELL DISTRIBUTION WIDTH 13.6 % (11.5-14.5); WHITE BLOOD COUNT 12.1 K/mm3 (4.8-10.8)
[2021-08-13 13:20] LABS: POTASSIUM 4.3 mmol/L (3.5-5.1)
[2021-08-13 13:21] LABS: CALCIUM 10.1 mg/dL (8.3-10.5)
[2021-08-13 13:23] LABS: TOTAL PROTEIN 7.3 g/dL (6.2-8.1)
[2021-08-13 13:24] LABS: TOTAL BILIRUBIN 0.6 mg/dL (0.2-1.2)
[2021-08-13 13:39] LABS: LYMPHOCYTE 43 % (20-51); MONOCYTE 6 % (3-10); NEUTROPHILS 47 % (42-75)
== END ==
LOC: LAB 12:52
PROVIDERS: Internal Medicine
DX: C64.9 Malignant neoplasm of unspecified kidney, except renal pelvis (principal)

== ENCOUNTER → 2021-08-29 | Outpatient (CLI) | payer BC, MEDICARE ==
[2021-08-29 14:42] LABS: HEMATOCRIT 42.3 % (42.0-52.0); HEMOGLOBIN 13.5 g/dL (13.5-18.0); MEAN CELL VOLUME 102 fl (78-100); MEAN CORPUSCULAR HEMOGLOBIN 33 pg (27-31); MEAN CORPUSCULAR HGB CONC 32 g/dL (33-37); MEAN PLATELET VOLUME 8.9 fl (7.4-10.4); PLATELET COUNT 488 K/mm3 (130-400); RED BLOOD COUNT 4.14 M/mm3 (4.20-5.60); RED CELL DISTRIBUTION WIDTH 13.6 % (11.5-14.5); WHITE BLOOD COUNT 12.6 K/mm3 (4.8-10.8)
[2021-08-29 14:55] LABS: POTASSIUM 4.5 mmol/L (3.5-5.1)
[2021-08-29 14:56] LABS: CALCIUM 9.8 mg/dL (8.3-10.5)
[2021-08-29 14:57] LABS: TOTAL PROTEIN 7.5 g/dL (6.2-8.1)
[2021-08-29 14:59] LABS: TOTAL BILIRUBIN 0.5 mg/dL (0.2-1.2)
[2021-08-29 15:25] LABS: HYPOCHROMIA 1+; LYMPHOCYTE 47 % (20-51); MONOCYTE 8 % (3-10); NEUTROPHILS 45 % (42-75)
== END ==
LOC: LAB 14:27
PROVIDERS: Internal Medicine
DX: C64.2 Malignant neoplasm of left kidney, except renal pelvis (principal)

== ENCOUNTER → 2021-08-30 | Outpatient (CLI) | payer BC, MEDICARE | LOC: RAD 07:33 | DX: C64.2 Malignant neoplasm of left kidney, except renal pelvis (principal); R91.1 Solitary pulmonary nodule | CPT/HCPCS: Q9967 ==

== ENCOUNTER → 2021-09-20 | Outpatient (CLI) | payer BC, MEDICARE ==
[2021-09-20 14:44] LABS: BASO # 0.08 K/mm3 (0.02-0.10); EOS # 0.45 K/mm3 (0.04-0.40); EOS % 5.8 % (0.0-4.0); HEMATOCRIT 42.5 % (42.0-52.0); HEMOGLOBIN 14.3 g/dL (13.5-18.0); LYMPH# 3.49 K/mm3 (1.50-4.00); MEAN CELL VOLUME 99 fl (78-100); MEAN CORPUSCULAR HEMOGLOBIN 33 pg (27-31); MEAN CORPUSCULAR HGB CONC 34 g/dL (33-37); MONO # 0.87 K/mm3 (0.20-0.80); NEU # 2.92 K/mm3 (1.40-6.50); PLATELET COUNT 370 K/mm3 (130-400); RED BLOOD COUNT 4.31 M/mm3 (4.20-5.60); WHITE BLOOD COUNT 7.8 K/mm3 (4.8-10.8)
[2021-09-20 15:03] LABS: POTASSIUM 4.6 mmol/L (3.5-5.1)
[2021-09-20 15:04] LABS: ALBUMIN 3.9 g/dL (3.4-4.8)
[2021-09-20 15:07] LABS: TOTAL PROTEIN 7.5 g/dL (6.2-8.1)
[2021-09-20 15:08] LABS: TOTAL BILIRUBIN 0.4 mg/dL (0.2-1.2)
== END ==
LOC: LAB 14:21
PROVIDERS: Internal Medicine
DX: C64.2 Malignant neoplasm of left kidney, except renal pelvis (principal)

== ENCOUNTER → 2021-10-11 | Outpatient (CLI) | payer BC, MEDICARE ==
[2021-10-11 10:32] LABS: BASO # 0.07 K/mm3 (0.02-0.10); EOS # 0.34 K/mm3 (0.04-0.40); HEMATOCRIT 42.5 % (42.0-52.0); HEMOGLOBIN 14.1 g/dL (13.5-18.0); LYMPH# 4.08 K/mm3 (1.50-4.00); MEAN CELL VOLUME 99 fl (78-100); MEAN CORPUSCULAR HEMOGLOBIN 33 pg (27-31); MEAN CORPUSCULAR HGB CONC 33 g/dL (33-37); MEAN PLATELET VOLUME 8.7 fl (7.4-10.4); MONO # 0.82 K/mm3 (0.20-0.80); NEU # 3.23 K/mm3 (1.40-6.50); PLATELET COUNT 436 K/mm3 (130-400); WHITE BLOOD COUNT 8.6 K/mm3 (4.8-10.8)
[2021-10-11 10:38] LABS: ALBUMIN 3.9 g/dL (3.4-4.8)
[2021-10-11 10:39] LABS: POTASSIUM 3.6 mmol/L (3.5-5.1)
[2021-10-11 10:40] LABS: CALCIUM 9.7 mg/dL (8.3-10.5)
[2021-10-11 10:41] LABS: TOTAL PROTEIN 7.4 g/dL (6.2-8.1)
[2021-10-11 10:43] LABS: TOTAL BILIRUBIN 0.6 mg/dL (0.2-1.2)
== END ==
LOC: LAB 10:15
PROVIDERS: Internal Medicine
DX: C64.2 Malignant neoplasm of left kidney, except renal pelvis (principal)

== ENCOUNTER → 2021-11-01 | Outpatient (CLI) | payer BC, MEDICARE ==
[2021-11-01 14:08] LABS: BASO # 0.07 K/mm3 (0.02-0.10); HEMATOCRIT 43.9 % (42.0-52.0); HEMOGLOBIN 14.5 g/dL (13.5-18.0); LYMPH# 4.72 K/mm3 (1.50-4.00); MEAN CELL VOLUME 100 fl (78-100); MEAN CORPUSCULAR HEMOGLOBIN 33 pg (27-31); MEAN CORPUSCULAR HGB CONC 33 g/dL (33-37); MEAN PLATELET VOLUME 8.7 fl (7.4-10.4); MONO # 0.92 K/mm3 (0.20-0.80); PLATELET COUNT 432 K/mm3 (130-400); RED BLOOD COUNT 4.39 M/mm3 (4.20-5.60); WHITE BLOOD COUNT 9.9 K/mm3 (4.8-10.8)
[2021-11-01 14:13] LABS: ALBUMIN 3.9 g/dL (3.4-4.8); POTASSIUM 3.8 mmol/L (3.5-5.1)
[2021-11-01 14:15] LABS: CALCIUM 9.7 mg/dL (8.3-10.5)
[2021-11-01 14:16] LABS: TOTAL PROTEIN 7.3 g/dL (6.2-8.1)
[2021-11-01 14:18] LABS: TOTAL BILIRUBIN 0.6 mg/dL (0.2-1.2)
== END ==
LOC: LAB 13:57
PROVIDERS: Internal Medicine
DX: C64.2 Malignant neoplasm of left kidney, except renal pelvis (principal)

== ENCOUNTER → 2021-11-12 | Outpatient (CLI) | payer BC, MEDICARE | LOC: RAD 09:00 | DX: R91.1 Solitary pulmonary nodule (principal); C64.2 Malignant neoplasm of left kidney, except renal pelvis | CPT/HCPCS: Q9967 ==

== ENCOUNTER → 2021-11-22 | Outpatient (CLI) | payer MEDICARE ==
[2021-11-22 09:03] LABS: BASO # 0.05 K/mm3 (0.02-0.10); EOS # 0.22 K/mm3 (0.04-0.40); EOS % 2.3 % (0.0-4.0); HEMATOCRIT 43.9 % (42.0-52.0); HEMOGLOBIN 14.6 g/dL (13.5-18.0); LYMPH# 4.68 K/mm3 (1.50-4.00); MEAN CELL VOLUME 99 fl (78-100); MEAN CORPUSCULAR HEMOGLOBIN 33 pg (27-31); MEAN CORPUSCULAR HGB CONC 33 g/dL (33-37); MEAN PLATELET VOLUME 9.3 fl (7.4-10.4); MONO # 0.73 K/mm3 (0.20-0.80); NEU # 3.69 K/mm3 (1.40-6.50); PLATELET COUNT 355 K/mm3 (130-400); RED BLOOD COUNT 4.42 M/mm3 (4.20-5.60); RED CELL DISTRIBUTION WIDTH 12.9 % (11.5-14.5); WHITE BLOOD COUNT 9.4 K/mm3 (4.8-10.8)
[2021-11-22 09:11] LABS: ALBUMIN 4.2 g/dL (3.4-4.8); POTASSIUM 4.3 mmol/L (3.5-5.1)
[2021-11-22 09:12] LABS: CALCIUM 9.9 mg/dL (8.3-10.5)
[2021-11-22 09:14] LABS: TOTAL PROTEIN 7.5 g/dL (6.2-8.1)
== END ==
LOC: LAB 08:47
PROVIDERS: Internal Medicine
DX: C64.2 Malignant neoplasm of left kidney, except renal pelvis (principal)

== ENCOUNTER → 2021-12-11 | Outpatient (CLI) | payer MEDICARE ==
[2021-12-11 09:12] LABS: HEMOGLOBIN 11.6 g/dL (13.5-18.0); MEAN CELL VOLUME 106 fl (78-100); MEAN CORPUSCULAR HEMOGLOBIN 33 pg (27-31); MEAN CORPUSCULAR HGB CONC 31 g/dL (33-37); MEAN PLATELET VOLUME 9.2 fl (7.4-10.4); PLATELET COUNT 428 K/mm3 (130-400); RED BLOOD COUNT 3.49 M/mm3 (4.20-5.60); RED CELL DISTRIBUTION WIDTH 13.7 % (11.5-14.5); WHITE BLOOD COUNT 9.7 K/mm3 (4.8-10.8)
[2021-12-11 09:16] LABS: ALBUMIN 3.6 g/dL (3.4-4.8); POTASSIUM 4.2 mmol/L (3.5-5.1)
[2021-12-11 09:18] LABS: CALCIUM 9.7 mg/dL (8.3-10.5)
[2021-12-11 09:19] LABS: TOTAL PROTEIN 6.3 g/dL (6.2-8.1)
[2021-12-11 09:21] LABS: TOTAL BILIRUBIN 0.4 mg/dL (0.2-1.2)
[2021-12-11 10:05] LABS: BAND 1 % (0-10); MONOCYTE 11 % (3-10); NEUTROPHILS 44 % (42-75)
[2021-12-11 10:07] LABS: LYMPHOCYTE 41 % (20-51)
== END ==
LOC: LAB 08:36
PROVIDERS: Internal Medicine
DX: C64.2 Malignant neoplasm of left kidney, except renal pelvis (principal)

== ENCOUNTER → 2022-01-09 | Outpatient (CLI) | payer MEDICARE ==
[2022-01-09 12:03] LABS: HEMATOCRIT 38.7 % (42.0-52.0); HEMOGLOBIN 12.6 g/dL (13.5-18.0); MEAN CELL VOLUME 103 fl (78-100); MEAN CORPUSCULAR HEMOGLOBIN 34 pg (27-31); MEAN CORPUSCULAR HGB CONC 33 g/dL (33-37); MEAN PLATELET VOLUME 9.1 fl (7.4-10.4); PLATELET COUNT 515 K/mm3 (130-400); RED BLOOD COUNT 3.76 M/mm3 (4.20-5.60); RED CELL DISTRIBUTION WIDTH 12.5 % (11.5-14.5)
[2022-01-09 12:04] LABS: ALBUMIN 3.8 g/dL (3.4-4.8); POTASSIUM 4.4 mmol/L (3.5-5.1)
[2022-01-09 12:05] LABS: CALCIUM 9.4 mg/dL (8.3-10.5)
[2022-01-09 12:06] LABS: TOTAL PROTEIN 6.9 g/dL (6.2-8.1)
[2022-01-09 12:08] LABS: TOTAL BILIRUBIN 0.5 mg/dL (0.2-1.2)
[2022-01-09 12:23] LABS: LYMPHOCYTE 54 % (20-51); MONOCYTE 8 % (3-10); NEUTROPHILS 34 % (42-75)
== END ==
LOC: LAB 11:37
PROVIDERS: Internal Medicine
DX: C64.2 Malignant neoplasm of left kidney, except renal pelvis (principal)

== ENCOUNTER → 2022-01-29 | Outpatient (CLI) | payer MEDICARE ==
[2022-01-29 10:06] LABS: BASO # 0.07 K/mm3 (0.02-0.10); EOS # 0.37 K/mm3 (0.04-0.40); EOS % 4.1 % (0.0-4.0); HEMATOCRIT 41.4 % (42.0-52.0); HEMOGLOBIN 13.3 g/dL (13.5-18.0); LYMPH# 4.02 K/mm3 (1.50-4.00); MEAN CELL VOLUME 102 fl (78-100); MEAN CORPUSCULAR HEMOGLOBIN 33 pg (27-31); MEAN CORPUSCULAR HGB CONC 32 g/dL (33-37); MEAN PLATELET VOLUME 9.7 fl (7.4-10.4); MONO # 1.12 K/mm3 (0.20-0.80); NEU # 3.31 K/mm3 (1.40-6.50); PLATELET COUNT 332 K/mm3 (130-400); RED BLOOD COUNT 4.07 M/mm3 (4.20-5.60); RED CELL DISTRIBUTION WIDTH 12.2 % (11.5-14.5); WHITE BLOOD COUNT 8.9 K/mm3 (4.8-10.8)
[2022-01-29 10:18] LABS: POTASSIUM 5.3 mmol/L (3.5-5.1)
[2022-01-29 10:20] LABS: CALCIUM 9.8 mg/dL (8.3-10.5)
[2022-01-29 10:21] LABS: TOTAL PROTEIN 7.9 g/dL (6.2-8.1)
[2022-01-29 10:23] LABS: TOTAL BILIRUBIN 0.4 mg/dL (0.2-1.2)
== END ==
LOC: LAB 09:48
PROVIDERS: Internal Medicine
DX: C64.2 Malignant neoplasm of left kidney, except renal pelvis (principal); E11.9 Type 2 diabetes mellitus without complications

== ENCOUNTER → 2022-02-19 | Outpatient (CLI) | payer MEDICARE ==
[2022-02-19 09:16] LABS: BASO # 0.09 K/mm3 (0.02-0.10); EOS # 0.32 K/mm3 (0.04-0.40); EOS % 3.4 % (0.0-4.0); HEMATOCRIT 42.9 % (42.0-52.0); HEMOGLOBIN 13.8 g/dL (13.5-18.0); LYMPH# 4.15 K/mm3 (1.50-4.00); MEAN CELL VOLUME 100 fl (78-100); MEAN CORPUSCULAR HEMOGLOBIN 32 pg (27-31); MEAN CORPUSCULAR HGB CONC 32 g/dL (33-37); MEAN PLATELET VOLUME 8.8 fl (7.4-10.4); MONO # 0.79 K/mm3 (0.20-0.80); NEU # 3.94 K/mm3 (1.40-6.50); PLATELET COUNT 551 K/mm3 (130-400); RED BLOOD COUNT 4.28 M/mm3 (4.20-5.60); RED CELL DISTRIBUTION WIDTH 11.8 % (11.5-14.5); WHITE BLOOD COUNT 9.3 K/mm3 (4.8-10.8)
[2022-02-19 09:23] LABS: ALBUMIN 4.2 g/dL (3.4-4.8); POTASSIUM 4.5 mmol/L (3.5-5.1)
[2022-02-19 09:24] LABS: CALCIUM 10.4 mg/dL (8.3-10.5)
[2022-02-19 09:27] LABS: TOTAL BILIRUBIN 0.3 mg/dL (0.2-1.2)
== END ==
LOC: LAB 09:00
PROVIDERS: Internal Medicine
DX: C64.2 Malignant neoplasm of left kidney, except renal pelvis (principal)

== ENCOUNTER → 2022-04-03 | Outpatient (CLI) | payer MEDICARE ==
[2022-04-03 09:26] LABS: BASO # 0.07 K/mm3 (0.02-0.10); EOS # 0.27 K/mm3 (0.04-0.40); EOS % 3.1 % (0.0-4.0); HEMATOCRIT 44.9 % (42.0-52.0); HEMOGLOBIN 14.6 g/dL (13.5-18.0); LYMPH# 3.55 K/mm3 (1.50-4.00); MEAN CELL VOLUME 95 fl (78-100); MEAN CORPUSCULAR HEMOGLOBIN 31 pg (27-31); MEAN CORPUSCULAR HGB CONC 33 g/dL (33-37); MONO # 0.89 K/mm3 (0.20-0.80); NEU # 3.85 K/mm3 (1.40-6.50); PLATELET COUNT 451 K/mm3 (130-400); RED BLOOD COUNT 4.72 M/mm3 (4.20-5.60); RED CELL DISTRIBUTION WIDTH 12.5 % (11.5-14.5); WHITE BLOOD COUNT 8.7 K/mm3 (4.8-10.8)
[2022-04-03 09:31] LABS: ALBUMIN 4.2 g/dL (3.4-4.8); POTASSIUM 4.5 mmol/L (3.5-5.1)
[2022-04-03 09:32] LABS: CALCIUM 9.9 mg/dL (8.3-10.5)
[2022-04-03 09:35] LABS: TOTAL BILIRUBIN 0.4 mg/dL (0.2-1.2)
== END ==
LOC: LAB 09:09
PROVIDERS: Internal Medicine
DX: C64.2 Malignant neoplasm of left kidney, except renal pelvis (principal)

== ENCOUNTER → 2022-04-24 | Outpatient (CLI) | payer MEDICARE ==
[2022-04-24 09:45] LABS: BASO # 0.08 K/mm3 (0.02-0.10); EOS # 0.26 K/mm3 (0.04-0.40); EOS % 2.7 % (0.0-4.0); HEMATOCRIT 43.8 % (42.0-52.0); HEMOGLOBIN 14.1 g/dL (13.5-18.0); LYMPH# 3.72 K/mm3 (1.50-4.00); MEAN CELL VOLUME 95 fl (78-100); MEAN CORPUSCULAR HEMOGLOBIN 31 pg (27-31); MEAN CORPUSCULAR HGB CONC 32 g/dL (33-37); MEAN PLATELET VOLUME 8.6 fl (7.4-10.4); MONO # 0.76 K/mm3 (0.20-0.80); NEU # 4.63 K/mm3 (1.40-6.50); PLATELET COUNT 460 K/mm3 (130-400); WHITE BLOOD COUNT 9.5 K/mm3 (4.8-10.8)
[2022-04-24 12:52] LABS: ALBUMIN 4.2 g/dL (3.4-4.8); POTASSIUM 4.5 mmol/L (3.5-5.1)
[2022-04-24 12:54] LABS: CALCIUM 10.1 mg/dL (8.3-10.5)
[2022-04-24 12:55] LABS: TOTAL PROTEIN 7.7 g/dL (6.2-8.1)
[2022-04-24 12:57] LABS: TOTAL BILIRUBIN 0.3 mg/dL (0.2-1.2)
== END ==
LOC: LAB 09:23
PROVIDERS: Internal Medicine
DX: C64.9 Malignant neoplasm of unspecified kidney, except renal pelvis (principal)

== ENCOUNTER → 2022-06-05 | Outpatient (CLI) | payer MEDICARE ==
[2022-06-05 11:23] LABS: BASO # 0.12 K/mm3 (0.02-0.10); EOS # 0.47 K/mm3 (0.04-0.40); EOS % 5.7 % (0.0-4.0); HEMATOCRIT 43.5 % (42.0-52.0); HEMOGLOBIN 13.8 g/dL (13.5-18.0); LYMPH# 3.58 K/mm3 (1.50-4.00); MEAN CELL VOLUME 95 fl (78-100); MEAN CORPUSCULAR HEMOGLOBIN 30 pg (27-31); MEAN CORPUSCULAR HGB CONC 32 g/dL (33-37); MEAN PLATELET VOLUME 9.7 fl (7.4-10.4); MONO # 0.71 K/mm3 (0.20-0.80); NEU # 3.26 K/mm3 (1.40-6.50); RED BLOOD COUNT 4.57 M/mm3 (4.20-5.60); RED CELL DISTRIBUTION WIDTH 13.5 % (11.5-14.5); WHITE BLOOD COUNT 8.2 K/mm3 (4.8-10.8)
[2022-06-05 11:27] LABS: ALBUMIN 4.2 g/dL (3.4-4.8); POTASSIUM 4.3 mmol/L (3.5-5.1)
[2022-06-05 11:28] LABS: CALCIUM 9.8 mg/dL (8.3-10.5)
[2022-06-05 11:31] LABS: TOTAL BILIRUBIN 0.3 mg/dL (0.2-1.2)
[2022-06-05 12:37] LABS: PLATELET COUNT 68 K/mm3 (130-400)
== END ==
LOC: LAB 11:03
PROVIDERS: Internal Medicine
DX: C64.2 Malignant neoplasm of left kidney, except renal pelvis (principal)

== ENCOUNTER → 2022-11-24 | Outpatient (CLI) | payer MEDICARE ==
[2022-11-24 16:04] LABS: HEMATOCRIT 42.6 % (42.0-52.0); HEMOGLOBIN 14.2 g/dL (13.5-18.0); LYMPH# 1.31 K/mm3 (1.50-4.00); MEAN CELL VOLUME 92 fl (78-100); MEAN CORPUSCULAR HEMOGLOBIN 31 pg (27-31); MEAN CORPUSCULAR HGB CONC 33 g/dL (33-37); MONO # 0.25 K/mm3 (0.20-0.80); PLATELET COUNT 495 K/mm3 (130-400); RED BLOOD COUNT 4.65 M/mm3 (4.20-5.60); RED CELL DISTRIBUTION WIDTH 13.1 % (11.5-14.5); WHITE BLOOD COUNT 11.5 K/mm3 (4.8-10.8)
[2022-11-24 16:08] LABS: ALBUMIN 3.1 g/dL (3.4-4.8); POTASSIUM 4.2 mmol/L (3.5-5.1)
[2022-11-24 16:10] LABS: CALCIUM 8.7 mg/dL (8.3-10.5)
[2022-11-24 16:11] LABS: TOTAL PROTEIN 6.3 g/dL (6.2-8.1)
[2022-11-24 17:56] LABS: TOTAL BILIRUBIN 0.8 mg/dL (0.2-1.2)
== END ==
LOC: LAB 15:37
PROVIDERS: Internal Medicine
DX: C64.2 Malignant neoplasm of left kidney, except renal pelvis (principal)

== ENCOUNTER → 2023-02-20 | Outpatient (CLI) | payer MEDICARE, MEDICAID | LOC: RAD 08:35 | DX: C64.2 Malignant neoplasm of left kidney, except renal pelvis (principal); R59.0 Localized enlarged lymph nodes; Z90.5 Acquired absence of kidney | CPT/HCPCS: Q9967 ==

== ENCOUNTER → 2023-05-13 | Outpatient (CLI) | payer MEDICARE ==
[2023-05-13 10:18] LABS: HEMATOCRIT 44.3 % (42.0-52.0); MEAN CELL VOLUME 103 fl (78-100); MEAN CORPUSCULAR HEMOGLOBIN 32 pg (27-31); MEAN CORPUSCULAR HGB CONC 32 g/dL (33-37); MEAN PLATELET VOLUME 8.9 fl (7.4-10.4); PLATELET COUNT 444 K/mm3 (130-400); RED BLOOD COUNT 4.32 M/mm3 (4.20-5.60); RED CELL DISTRIBUTION WIDTH 12.4 % (11.5-14.5); WHITE BLOOD COUNT 15.5 K/mm3 (4.8-10.8)
[2023-05-13 10:20] LABS: ALBUMIN 3.9 g/dL (3.4-4.8)
[2023-05-13 10:22] LABS: CALCIUM 9.3 mg/dL (8.3-10.5)
[2023-05-13 10:23] LABS: TOTAL PROTEIN 7.8 g/dL (6.2-8.1)
[2023-05-13 10:25] LABS: TOTAL BILIRUBIN 0.4 mg/dL (0.2-1.2)
[2023-05-13 10:57] LABS: LYMPHOCYTE 61 % (20-51); MONOCYTE 7 % (3-10); NEUTROPHILS 26 % (42-75)
== END ==
LOC: LAB 09:55
PROVIDERS: Internal Medicine
DX: C64.2 Malignant neoplasm of left kidney, except renal pelvis (principal)

== ENCOUNTER → 2023-08-12 | Outpatient (CLI) | payer MEDICARE ==
[2023-10-01 10:56] LABS: BASO # 0.09 K/mm3 (0.02-0.10); EOS # 0.25 K/mm3 (0.04-0.40); EOS % 1.7 % (0.0-4.0); HEMOGLOBIN 14.3 g/dL (13.5-18.0); LYMPH# 8.26 K/mm3 (1.50-4.00); MEAN CELL VOLUME 94 fl (78-100); MEAN CORPUSCULAR HEMOGLOBIN 31 pg (27-31); MEAN CORPUSCULAR HGB CONC 33 g/dL (33-37); MEAN PLATELET VOLUME 8.9 fl (7.4-10.4); MONO # 1.06 K/mm3 (0.20-0.80); NEU # 4.75 K/mm3 (1.40-6.50); PLATELET COUNT 423 K/mm3 (130-400); RED BLOOD COUNT 4.67 M/mm3 (4.20-5.60); RED CELL DISTRIBUTION WIDTH 13.4 % (11.5-14.5); WHITE BLOOD COUNT 14.4 K/mm3 (4.8-10.8)
[2023-10-01 11:54] LABS: CALCIUM 9.6 mg/dL (8.3-10.5); TOTAL BILIRUBIN 0.5 mg/dL (0.2-1.2); TOTAL PROTEIN 7.8 g/dL (6.2-8.1)
== END ==
LOC: LAB 09:59
PROVIDERS: Internal Medicine
DX: C64.2 Malignant neoplasm of left kidney, except renal pelvis (principal)

== ENCOUNTER → 2023-08-14 | Outpatient (CLI) | payer MEDICARE | LOC: RAD 16:07 | DX: K86.89 Other specified diseases of pancreas (principal); R91.1 Solitary pulmonary nodule; K57.90 Diverticulosis of intestine, part unspecified, without perforation or abscess without bleeding; C64.2 Malignant neoplasm of left kidney, except renal pelvis ==

== ENCOUNTER → 2023-10-05 | Outpatient (CLI) | payer MEDICARE ==
[2023-10-05 14:21] LABS: HEMATOCRIT 43.1 % (42.0-52.0); HEMOGLOBIN 13.8 g/dL (13.5-18.0); MEAN CELL VOLUME 96 fl (78-100); MEAN CORPUSCULAR HEMOGLOBIN 31 pg (27-31); MEAN CORPUSCULAR HGB CONC 32 g/dL (33-37); MEAN PLATELET VOLUME 8.9 fl (7.4-10.4); PLATELET COUNT 444 K/mm3 (130-400); RED BLOOD COUNT 4.51 M/mm3 (4.20-5.60); RED CELL DISTRIBUTION WIDTH 13.1 % (11.5-14.5); WHITE BLOOD COUNT 13.1 K/mm3 (4.8-10.8)
[2023-10-05 14:23] LABS: ALBUMIN 3.8 g/dL (3.4-4.8)
[2023-10-05 14:25] LABS: CALCIUM 9.5 mg/dL (8.3-10.5)
[2023-10-05 14:26] LABS: TOTAL PROTEIN 7.5 g/dL (6.2-8.1)
[2023-10-05 14:28] LABS: TOTAL BILIRUBIN 0.3 mg/dL (0.2-1.2)
[2023-10-05 15:00] LABS: BAND 1 % (0-10); MONOCYTE 8 % (3-10); MYELOCYTE 1 % (0-0); NEUTROPHILS 21 % (42-75)
[2023-10-05 15:01] LABS: LYMPHOCYTE 66 % (20-51)
== END ==
LOC: LAB 14:04
PROVIDERS: Internal Medicine
DX: C64.2 Malignant neoplasm of left kidney, except renal pelvis (principal)

== ENCOUNTER → 2023-11-12 | Outpatient (CLI) | payer MEDICARE ==
[2023-11-12 10:32] LABS: HEMATOCRIT 45.7 % (42.0-52.0); HEMOGLOBIN 14.8 g/dL (13.5-18.0); MEAN CELL VOLUME 96 fl (78-100); MEAN CORPUSCULAR HEMOGLOBIN 31 pg (27-31); MEAN CORPUSCULAR HGB CONC 32 g/dL (33-37); MEAN PLATELET VOLUME 8.8 fl (7.4-10.4); PLATELET COUNT 400 K/mm3 (130-400); RED BLOOD COUNT 4.77 M/mm3 (4.20-5.60); RED CELL DISTRIBUTION WIDTH 13.3 % (11.5-14.5); WHITE BLOOD COUNT 10.5 K/mm3 (4.8-10.8)
[2023-11-12 10:36] LABS: ALBUMIN 4.1 g/dL (3.4-4.8)
[2023-11-12 10:37] LABS: CALCIUM 9.5 mg/dL (8.3-10.5)
[2023-11-12 10:38] LABS: TOTAL PROTEIN 7.8 g/dL (6.2-8.1)
[2023-11-12 10:40] LABS: TOTAL BILIRUBIN 0.5 mg/dL (0.2-1.2)
[2023-11-12 10:56] LABS: LYMPHOCYTE 64 % (20-51); MONOCYTE 10 % (3-10); NEUTROPHILS 24 % (42-75)
== END ==
LOC: LAB 10:20
PROVIDERS: Internal Medicine
DX: C64.2 Malignant neoplasm of left kidney, except renal pelvis (principal)

== ENCOUNTER → 2024-01-07 | Outpatient (CLI) | payer MEDICARE ==
[2024-01-07 15:17] LABS: HEMATOCRIT 45.2 % (42.0-52.0); HEMOGLOBIN 14.9 g/dL (13.5-18.0); MEAN CELL VOLUME 96 fl (78-100); MEAN CORPUSCULAR HEMOGLOBIN 32 pg (27-31); MEAN CORPUSCULAR HGB CONC 33 g/dL (33-37); MEAN PLATELET VOLUME 8.9 fl (7.4-10.4); PLATELET COUNT 410 K/mm3 (130-400); RED BLOOD COUNT 4.73 M/mm3 (4.20-5.60); RED CELL DISTRIBUTION WIDTH 13.3 % (11.5-14.5)
[2024-01-07 15:23] LABS: ALBUMIN 4.1 g/dL (3.4-4.8)
[2024-01-07 15:25] LABS: CALCIUM 9.4 mg/dL (8.3-10.5)
[2024-01-07 15:26] LABS: TOTAL PROTEIN 7.9 g/dL (6.2-8.1)
[2024-01-07 15:28] LABS: TOTAL BILIRUBIN 0.5 mg/dL (0.2-1.2)
[2024-01-07 16:53] LABS: LYMPHOCYTE 54 % (20-51); MONOCYTE 3 % (3-10); NEUTROPHILS 43 % (42-75)
== END ==
LOC: LAB 14:53
PROVIDERS: Internal Medicine
DX: C64.2 Malignant neoplasm of left kidney, except renal pelvis (principal)

== ENCOUNTER → 2024-02-05 | Outpatient (CLI) | payer MEDICARE ==
[~2024-02-05] MED LIST: Gadoterate 20 ML VIAL IV ONE
== END ==
LOC: RAD 08:00
DX: C64.2 Malignant neoplasm of left kidney, except renal pelvis (principal)
CPT/HCPCS: A9575

== ENCOUNTER → 2024-03-07 | Outpatient (CLI) | payer MEDICARE | LOC: LAB 09:10 | DX: E11.9 Type 2 diabetes mellitus without complications (principal) ==

== ENCOUNTER → 2024-03-22 | Outpatient (CLI) | payer MEDICARE ==
[2024-03-22 11:10] LABS: HEMATOCRIT 44.8 % (42.0-52.0); HEMOGLOBIN 14.5 g/dL (13.5-18.0); MEAN CELL VOLUME 97 fl (78-100); MEAN CORPUSCULAR HEMOGLOBIN 32 pg (27-31); MEAN CORPUSCULAR HGB CONC 32 g/dL (33-37); MEAN PLATELET VOLUME 8.9 fl (7.4-10.4); PLATELET COUNT 353 K/mm3 (130-400); RED BLOOD COUNT 4.61 M/mm3 (4.20-5.60); RED CELL DISTRIBUTION WIDTH 13.1 % (11.5-14.5); WHITE BLOOD COUNT 11.7 K/mm3 (4.8-10.8)
[2024-03-22 11:14] LABS: ALBUMIN 4.1 g/dL (3.4-4.8)
[2024-03-22 11:15] LABS: CALCIUM 9.9 mg/dL (8.3-10.5)
[2024-03-22 11:16] LABS: TOTAL PROTEIN 7.4 g/dL (6.2-8.1)
[2024-03-22 11:18] LABS: TOTAL BILIRUBIN 0.5 mg/dL (0.2-1.2)
[2024-03-22 12:20] LABS: LYMPHOCYTE 56 % (20-51); MONOCYTE 6 % (3-10); NEUTROPHILS 33 % (42-75)
== END ==
LOC: LAB 10:49
PROVIDERS: Internal Medicine
DX: C64.2 Malignant neoplasm of left kidney, except renal pelvis (principal)

== ENCOUNTER → 2024-05-30 | Outpatient (CLI) | payer MEDICARE ==
[2024-05-30 09:15] LABS: HEMATOCRIT 44.3 % (42.0-52.0); HEMOGLOBIN 14.3 g/dL (13.5-18.0); MEAN CELL VOLUME 97 fl (78-100); MEAN CORPUSCULAR HEMOGLOBIN 31 pg (27-31); MEAN CORPUSCULAR HGB CONC 32 g/dL (33-37); MEAN PLATELET VOLUME 8.9 fl (7.4-10.4); PLATELET COUNT 395 K/mm3 (130-400); RED BLOOD COUNT 4.55 M/mm3 (4.20-5.60); RED CELL DISTRIBUTION WIDTH 13.2 % (11.5-14.5); WHITE BLOOD COUNT 10.6 K/mm3 (4.8-10.8)
[2024-05-30 09:27] LABS: CALCIUM 9.5 mg/dL (8.3-10.5)
[2024-05-30 09:30] LABS: TOTAL BILIRUBIN 0.5 mg/dL (0.2-1.2)
[2024-05-30 10:01] LABS: LYMPHOCYTE 50 % (20-51); MONOCYTE 8 % (3-10); NEUTROPHILS 37 % (42-75)
== END ==
LOC: LAB 08:55
PROVIDERS: Internal Medicine
DX: C64.2 Malignant neoplasm of left kidney, except renal pelvis (principal); E11.9 Type 2 diabetes mellitus without complications